=== PATIENT | male | born 1945 | race Caucasian/White ===

== ENCOUNTER → 2016-11-13 | Outpatient (CLI) | payer MEDICARE, OTHER ==
[~2016-11-13] MED LIST: ADVAIR 100-501 EAC1 INH; ALBUTEROL20 ml INH; ALVESCO6.1 G1 IH; ASPIRIN; ASPIRIN PO; ASPIRIN81 M2 PO; CARDURA8 MG PO; COLESTID PO; COLESTID1 GM PO; COZAAR; COZAAR100 MG PO; COZAAR25 MG PO; CRESTOR PO; ELIQUIS5 MG PO; FLUNISOLIDE25 ML NS; GLUCOTROL PO; GLUCOTROL10 MG PO; GLYBURIDE PO; HCTZ; HYDROCHLOROTHIA25 MG PO; LIPITOR40 MG PO; LOMOTIL WHITE2.5 MG PO; LOPRESSOR PO; NORVASC PO; OMEPRAZOLE40 MG PO; PAXIL PO; PLENDIL; PRILOSEC PO; VICODIN 5/500 T1 TAB PO; ZOCOR PO; ZYLOPRIM PO
--- NOTE | ~2016-11-13 | CT57 ---
[facility] A Service [facility] RADIOLOGY TEXT RESULTS PATIENT: EVELYN MCALLISTER JR LOCATION: [facility] : 49 UNIT #: [id number] AGE: [address]: Catherine Vinson SEX: M ORDER DR: [id number] [facility] [address]. [place], [place] [address] [id number] O MR#: [id number] [facility] #: [id number] NAME: EVELYN MCALLISTER : 1945 SEX: M STUDY DATE/TIME: 11/13/2016 8:54 UNIT: [facility] ROOM: STUDY DESCRIPTION: CT Chest Wo Cont Attending Physician: Catherine Vinson A.P.R.N. Ordering Physician: Catherine Vinson A.P.R.N. Primary Care Physician: Anny Harding M.D. MEDICAL IMAGING REPORT This report is preliminary unless electronic signature is present EXAM High-resolution chest CT without contrast INDICATION Shortness of breath since 2011. Emphysema. TECHNIQUE CT of the chest performed without contrast. Selected HRCT imaging was obtained. Scanning performed in the supine and prone positioning. This CT exam was performed with one or more of the following radiation dose reduction techniques: automatic exposure control, adjustment of mA and/or kV according to patient size, and iterative reconstruction. COMPARISON 09/09/2009 FINDINGS There is stable scarring within the lingula. There is new mild linear scarring within both lower lobes. Selected HRCT imaging demonstrates no evidence of bronchiectasis, diffuse infiltrative lung disease or honeycombing. Prior sternotomy and CABG. No lymphadenopathy. Scant pleural fluid at the right lung base. Limited imaging of the upper abdomen demonstrates cholelithiasis. Partially imaged renal cysts. Bone windows demonstrate no suspicious osseous abnormality. IMPRESSION 1. There is new this linear scarring in both lower lobes and stable curvilinear scarring in the lingula. 2. No evidence of diffuse infiltrative lung disease, bronchiectasis or honeycombing. [facility] A Service [facility] RADIOLOGY TEXT RESULTS PATIENT: EVELYN MCALLISTER JR LOCATION: [facility] : [birth year] UNIT #: [id number] AGE: [address]: Catherine Vinson SEX: M ORDER DR: Dictated by... Ladarius Lopez M.D. THIS IS AN ELECTRONICALLY VERIFIED REPORT Ladarius Lopez M.D. at 11/13/2016 4:05 PM Kami TD: 11/13/2016 14:14 JOB #: [id number] MEDICAL IMAGING REPORT Page 1 of 1 COPY
== END | disposition home or self-care (01) ==
LOC: CCAT 08:21
DX: J43.9 Emphysema, unspecified (principal); R06.02 Shortness of breath; J98.4 Other disorders of lung
CPT/HCPCS: 71250